=== PATIENT | female | born 1935 | race Caucasian/White ===

== ENCOUNTER 2017-10-12 15:56 | Emergency (ER) | payer OTHER ==
[~2017-10-12] VITALS: Ht 152.4 cm; Wt 44.1 kg
[~2017-10-12 15:56] MED LIST: BINOSTO70 MG PO; PREDNISONE2.5 MG PO
[2017-10-12] MEDS ORDERED: PERCOCET 5/31 TABLET PO (21:13)
[2017-10-12] MEDS ORDERED: ZOFRAN ODT4 MG PO (21:13)
[2017-10-12 21:25] VITALS: BP 162/64
== END 2017-10-12 21:25 | disposition home or self-care (01) ==
LOC: EME 15:56
DX: S42.101A Fracture of unspecified part of scapula, right shoulder, initial encounter for closed fracture (principal); W01.198A Fall on same level from slipping, tripping and stumbling with subsequent striking against other object, initial encounter; Y93.H2 Activity, gardening and landscaping; I10 Essential (primary) hypertension; Z90.11 Acquired absence of right breast and nipple; Z85.9 Personal history of malignant neoplasm, unspecified; Z88.1 Allergy status to other antibiotic agents; Z88.5 Allergy status to narcotic agent; Z88.2 Allergy status to sulfonamides; Z88.6 Allergy status to analgesic agent; Z88.8 Allergy status to other drugs, medicaments and biological substances
CPT/HCPCS: 71250; 73030; 99281; 99284; J3010